=== PATIENT | female | born 1975 | race Caucasian/White ===

== ENCOUNTER 2019-11-04 09:23 | Outpatient (CLI) | payer OTHER, SELFPAY ==
--- NOTE | ~2019-11-04 | MM_ITS ---
EXAMINATION: MM screening [facility] BI w eric HISTORY: Screening mammogram TECHNIQUE: Craniocaudal and mediolateral oblique 3-D tomosynthesis images were obtained and synthetic 2-D images were generated. CAD analysis was submitted and interpreted. COMPARISON: Comparison to multiple prior studies sequentially, with oldest reviewed study dated 07/11. BREAST PARENCHYMAL COMPOSITION: The breasts are heterogeneously dense, which may obscure small masses . FINDINGS: There is no evidence of suspicious mass, calcification, or architectural distortion to sugg est malignancy in either breast. There has been no suspicious interval change. IMPRESSION: 1. No mammographic evidence of malignancy. 2. Recommend routine screening mammography in one year. BI-RADS Category 1: Negative Reviewed, dictated and finalized at location A.
== END 2019-11-04 09:24 | disposition home or self-care (01) ==
LOC: ANHIMG 09:26
PROVIDERS: PCP Internal Medicine; Visit Provider Nurse Practitioner Obstetrics & Gynecology
DX: Z12.31 Encounter for screening mammogram for malignant neoplasm of breast (principal)
CPT/HCPCS: 77063; 77067

== ENCOUNTER 2020-11-23 17:20 | Outpatient (CLI) | payer BC, SELFPAY ==
--- NOTE | ~2020-11-23 | MM_ITS ---
EXAMINATION: MM screening [facility] w eric HISTORY: Screening mammogram TECHNIQUE: Craniocaudal and mediolateral oblique 3-D tomosynthesis images were obtained and synthetic 2-D images were generated. CAD analysis was submitted and interpreted. COMPARISON: 11/04/2019, 10/17/2018, 10/16/2017 bilateral digital screening mammogram examinations BREAST PARENCHYMAL COMPOSITION: The breasts are heterogeneously dense, which may obscure small masses . FINDINGS: There is no evidence of suspicious mass, calcification, or architectural distortion to sugg est malignancy in either breast. There has been no suspicious interval change. IMPRESSION: 1. No mammographic evidence of malignancy. 2. Recommend routine screening mammography in one year. BI-RADS Category 1: Negative Reviewed, dictated and finalized at location A.
== END 2020-11-23 17:21 | disposition home or self-care (01) ==
PROVIDERS: PCP Internal Medicine; Visit Provider Advanced Practice Midwife
DX: Z12.31 Encounter for screening mammogram for malignant neoplasm of breast (principal)
CPT/HCPCS: 77063; 77067

== ENCOUNTER 2022-01-10 08:01 | Outpatient (CLI) | payer BC, SELFPAY ==
--- NOTE | ~2022-01-10 | MM_ITS ---
EXAMINATION: MM screening [facility] BI w eric HISTORY: Screening mammogram TECHNIQUE: Craniocaudal and mediolateral oblique 3-D tomosynthesis images were obtained and synthetic 2-D images were generated. CAD analysis was submitted and interpreted. COMPARISON: 11/23/2020, 11/04/2019, 10/21/2018 BREAST PARENCHYMAL COMPOSITION: The breasts are heterogeneously dense, which may obscure small masses . FINDINGS: There is no suspicious mass, calcification, or architectural distortion to suggest malignan cy in either breast. There has been no suspicious interval change. IMPRESSION: 1. No mammographic evidence of malignancy. 2. Recommend routine screening mammography in one year. BI-RADS Category 1: Negative Reviewed, dictated and finalized at location A.
== END 2022-01-10 08:02 | disposition home or self-care (01) ==
PROVIDERS: PCP Internal Medicine; Visit Provider Advanced Practice Midwife
DX: Z12.31 Encounter for screening mammogram for malignant neoplasm of breast (principal)
CPT/HCPCS: 77063; 77067

== ENCOUNTER → 2022-05-27 08:01 | Outpatient (CLI) | payer BC, SELFPAY ==
--- NOTE | ~2022-05-27 | US_ITS ---
EXAMINATION: US thyroid DATE: 05/27/2022 08:28 INDICATION: Hypothyroidism. TECHNIQUE: Multiple ultrasound images of the thyroid were obtained. COMPARISON: None. FINDINGS: The right thyroid lobe measures 4.3 x 1.2 x 1.3 cm. The left thyroid lobe measures 4.2 x 1.1 x 1.2 c m. There is heterogeneous echotexture and echogenicity throughout the thyroid gland. No discrete nod ules identified. Normal vascular flow is present. IMPRESSION: Heterogeneous thyroid gland as can be seen with Cheri thyroiditis and Graves' disease. Reviewed, dictated and finalized at location K. [employer] IMPRESSION: Heterogeneous thyroid gland as can be seen with Cheri thyroiditis and Grave s' disease.
== END ==
PROVIDERS: PCP Internal Medicine; Visit Provider Clinical Nurse Specialist
DX: E03.9 Hypothyroidism, unspecified (principal)
CPT/HCPCS: 76536

== ENCOUNTER 2023-02-17 00:43 | Day surgery (SDC) | payer BC, SELFPAY ==
[2023-01-29 14:23] VITALS: BMI 21.9
--- NOTE | 2023-02-16 18:23 | PM.HPGS ---
History of Present Illness History of Present Illness Consent: Risks, benefits, and alternatives have been discussed and questions answered. Patient agrees to proceed with procedure. Chief complaint: neoplasm screening Narrative: Mavis Dudley is a 47 year old female who is referred for colon cancer screening. Review of Systems Review of Systems: All systems reviewed & are unremarkable except as noted in HPI and below PMFSH Past Medical History Medical History Depression Hyperlipidemia Hypertension Hypothyroidism Insomnia Family History Family History Father Hyperlipidemia Diabetes mellitus Acute myocardial infarction FHx: cancer of prostate Mother Brain aneurysm Hypothyroidism Gastric artery aneurysm Social History Social History Smoking status: Never smoker Alcohol intake: current Alcohol use details: occasional Substance use type: does not use Lack of Transportation: No Lack of Food: Never True Current Housing: I Have Housing Concerned About Future Housing: No Difficulty Paying Gas/Electric Bills: No Difficulty Paying for Meds: No Currently Unemployed: No Education: Bachelor's Degree Difficulty w/ Childcare or Family Care: No Living arrangements: with family Spiritual care concerns: No Meds Home Medications and Allergies Home Medications Medication Instructions Recorded Confirmed Type levonorgestrel 21 mcg/24 hours (8 1 device intrauterine ONCE 02/16/20 02/17/23 History yrs) 52 mg intrauterine device (Mirena) lurasidone 20 mg tablet (Latuda) 20 mg PO DAILY 02/16/20 02/17/23 History cetirizine 10 mg capsule (Zyrtec) 10 mg PO DAILY PRN allergy symptoms 02/18/22 02/17/23 History ferrous sulfate 325 mg (65 mg 325 mg PO .MWF 02/18/22 02/17/23 History iron) tablet,delayed release levothyroxine 25 mcg tablet 25 mcg PO DAILY #90 tabs 07/26/22 02/17/23 Rx hydrocortisone 2.5 % topical cream 1 applic RECTAL Q12H PRN pain #30 01/28/23 02/17/23 Rx with perineal applicator grams (Proctozone-HC) Allergies Allergy/AdvReac Type Severity Reaction Status Date / Time No Known Allergies Allergy Unknown Verified 08/21/23 07:16 Exam Resp: Auscultation: clear to auscultation bilaterally Cardio: Rate: regular rate Rhythm: regular rhythm GI: GI Palp: Yes Soft to palpation and No Tenderness to palpation present (GI) Assessment and Plan Assessment and plan (1) Screening for colon cancer: Code(s): Z12.11 - Encounter for screening for malignant neoplasm of colon Status: Acute Assessment and Plan: Colonoscopy with possible biopsy or polypectomy or cautery or injection of substances.
[2023-02-17 07:17] VITALS: BP 152/101; PULSE 69; RESP 16; TEMP 36.4; O2SAT 100; BMI 21.8
[2023-02-17] MEDS: LACTATED RINGERS 1,000 ML 150 ML IV CONT (07:30)
--- NOTE | 2023-02-17 07:47 | WPDANESEPPF ---
Anes - Initial Pre Proc Eval Procedure: Operation Date: 02/17/23 08:30 Proposed Procedures p Screening Colonoscopy - Clinton Santoro MD Date/Time: 02/17/23 07:47 Surgeon: Clinton Santoro MD Pre Op Diagnosis: neoplasm screening Patient Data Age: 47 Gender: F Height: 1.63 m Weight: 57.6 kg Last Vital Signs Temp 36.4 C 02/17/23 07:17 Pulse 69 02/17/23 07:17 Resp 16 02/17/23 07:17 BP 152/101 H 02/17/23 07:17 Pulse Ox 100 02/17/23 07:17 O2 Del Method Room Air 02/17/23 07:17 Allergies Allergy/AdvReac Type Severity Reaction Status Date / Time No Known Allergies Allergy Unknown Verified 02/17/23 07:16 Home Medications Medication Instructions Recorded Confirmed Type levonorgestrel 21 mcg/24 hours (8 1 device intrauterine ONCE 02/16/20 02/17/23 History yrs) 52 mg intrauterine device (Mirena) lurasidone 20 mg tablet (Latuda) 20 mg PO DAILY 02/16/20 02/17/23 History cetirizine 10 mg capsule (Zyrtec) 10 mg PO DAILY PRN allergy symptoms 02/18/22 02/17/23 History ferrous sulfate 325 mg (65 mg 325 mg PO .MWF 02/18/22 02/17/23 History iron) tablet,delayed release levothyroxine 25 mcg tablet 25 mcg PO DAILY #90 tabs 07/26/22 02/17/23 Rx hydrocortisone 2.5 % topical cream 1 applic RECTAL Q12H PRN pain #30 01/28/23 02/17/23 Rx with perineal applicator grams (Proctozone-HC) Patient hx anesthesia problems: none Family hx anesthesia problems: none Results Review: All pre-operative results and documents have been reviewed as part of the pre-operative evaluation. [facility] Past Medical History Medical History Depression Hyperlipidemia Hypertension Hypothyroidism Insomnia Family History Family History Father Hyperlipidemia Diabetes mellitus Acute myocardial infarction FHx: cancer of prostate Mother Brain aneurysm Hypothyroidism Gastric artery aneurysm Social History Social History Smoking status: Never smoker Alcohol intake: current Alcohol use details: occasional Substance use type: does not use Lack of Transportation: No Lack of Food: Never True Current Housing: I Have Housing Concerned About Future Housing: No Difficulty Paying Gas/Electric Bills: No Difficulty Paying for Meds: No Currently Unemployed: No Education: Bachelor's Degree Difficulty w/ Childcare or Family Care: No Living arrangements: with family Spiritual care concerns: No Anes - Eval Final PreProcedure Day of Procedure 02/17/23 07:47 Patient weight: normal Heart: regular rate and rhythm Lungs: clear to auscultation Airway: Mallampati scale class II Neurological: alert and oriented Last oral intake: >/= 8 hours ASA classification: III Emergent: no Anesthetic plan: proceed Anesthesia type and monitoring: general GIVS and standard monitoring Results Review: All pre-operative results and documents have been reviewed as part of the pre-operative evaluation. Informed Consent: The patient's anesthetic plan and its attendant risks and benefits were discussed with the patient/family/POA. Questions were solicited and answers provided to the satisfaction of the patient/family/POA.
[2023-02-17 08:51] VITALS: BP 107/63; PULSE 70; RESP 19; O2SAT 100
[2023-02-17 09:01] VITALS: BP 128/83; PULSE 67; RESP 19; O2SAT 100
[2023-02-17 09:11] VITALS: BP 123/84; PULSE 67; RESP 19; O2SAT 100
== END 2023-02-17 09:23 | disposition home or self-care (01) ==
PROVIDERS: PCP Internal Medicine; Visit Provider Internal Medicine Gastroenterology
PROC: 0DJD8ZZ Inspection of Lower Intestinal Tract, Via Natural or Artificial Opening Endoscopic (ICD-10-PCS; CPT 45378; principal; 2023-02-17 08:30)
DX: Z12.11 Encounter for screening for malignant neoplasm of colon (principal); K57.30 Diverticulosis of large intestine without perforation or abscess without bleeding; I10 Essential (primary) hypertension; E78.5 Hyperlipidemia, unspecified; E03.9 Hypothyroidism, unspecified; F32.A Depression, unspecified
CPT/HCPCS: 45378; J2704; J7120

== ENCOUNTER 2023-03-31 15:41 | Outpatient (CLI) | payer BC, SELFPAY ==
--- NOTE | ~2023-03-31 | MM_ITS ---
EXAMINATION: MM screening [facility] BI w eric HISTORY: Screening mammogram TECHNIQUE: Craniocaudal and mediolateral oblique 3-D tomosynthesis images were obtained and synthetic 2-D images were generated. CAD analysis was submitted and interpreted. COMPARISON: 01/10/2022, 11/23/2020, 11/04/2019 BREAST PARENCHYMAL COMPOSITION: The breasts are heterogeneously dense, which may obscure small masses . FINDINGS: No suspicious mass, calcification, or architectural distortion are identified in either erasmo ast to suggest malignancy. There has been no suspicious interval change. IMPRESSION: 1. No mammographic evidence of malignancy. 2. Recommend routine screening mammography in one year. BI-RADS Category 1: Negative Reviewed, dictated and finalized at location A.
== END 2023-03-31 15:42 | disposition home or self-care (01) ==
LOC: ANHIMG 15:44
PROVIDERS: PCP Internal Medicine; Visit Provider Advanced Practice Midwife
DX: Z12.31 Encounter for screening mammogram for malignant neoplasm of breast (principal)
CPT/HCPCS: 77063; 77067

== ENCOUNTER 2023-12-02 11:15 | Outpatient (CLI) | payer BC, SELFPAY ==
--- NOTE | ~2023-12-02 | US_ITS ---
EXAMINATION: US pelvic complete w TV DATE: 12/02/2023 11:54 INDICATION: R10.2 - Pelvic and perineal pain TECHNIQUE: Multiple transabdominal and endovaginal sonographic images of the pelvis were obtained. COMPARISON: None. FINDINGS: Uterus: 8.1 x 3.2 x 3.9 cm. Anteverted. 1.6 cm round hypoechogenic lesion in the fundal uterine paren chyma, likely intramural fibroid. Endometrial complex measures 5 mm. Right Ovary: 3.1 x 1.5 x 1.5 cm. Vascular flow is present. Left Ovary: 2.5 x 1.8 x 2.7 cm. Vascular flow is present. Somewhat triangular shaped hypoechoic 1.5 cm right ovarian lesion with nonvascular internal debris. There is no free fluid in the pelvis. IMPRESSION: 1.6 cm fundal intramural fibroid. 1.5 cm right ovarian lesion, likely resolving hemorrhagic cyst, recommend follow-up in 8-12 weeks to demonstrate resolution. Reviewed, dictated and finalized at location K. IMPRESSION: 1.6 cm fundal intramural fibroid. 1.5 cm right ovarian lesion, likely resolving hemorrhagic cyst, recommend follo w-up in 8-12 weeks to demonstrate resolution.
== END 2023-12-02 11:16 ==
LOC: MICIMG 11:16
PROVIDERS: PCP Advanced Practice Midwife; Visit Provider Clinical Nurse Specialist
DX: D25.1 Intramural leiomyoma of uterus (principal); N83.201 Unspecified ovarian cyst, right side
CPT/HCPCS: 76830; 76856

== ENCOUNTER 2024-02-17 08:08 | Outpatient (CLI) | payer BC, SELFPAY ==
--- NOTE | ~2024-02-17 | US_ITS ---
EXAMINATION: US pelvic complete w TV INDICATION: Ovarian cysts Comparison:Ultrasound dated 12/02/2023 TECHNIQUE: Multiple transabdominal and endovaginal sonographic images of the pelvis performed. FINDINGS: The uterus measures 8 x 3.4 x 4.4 cm. There are multiple uterine fibroids measuring up to 2 .1 cm at the fundus, 1.8 cm on the right of the uterus and 9 mm posteriorly in the uterus. There is a n IUD present in the endometrium. There is a right ovarian cyst measuring 2.8 cm.. The endometrial co mplex measures 5. The right ovary measures 3.4 x 3 x 2.1 cm and the left ovary measures 2.6 x 1.9 x 1.4 cm. There are small follicles in each ovary. Normal dop pler signal in both ovaries. There is no free fluid in the pelvis. There are no abnormal masses seen on either side. IMPRESSION: 1. Multiple uterine fibroids, largest at the fundus measuring 2.1 cm. 2: IUD present within the endometrium. 3: Simple right ovarian cyst measuring 2.8 cm. Reviewed, dictated and finalized at location B.
== END 2024-02-17 08:09 ==
PROVIDERS: PCP Clinical Nurse Specialist; Visit Provider Advanced Practice Midwife
DX: N83.201 Unspecified ovarian cyst, right side (principal); D25.9 Leiomyoma of uterus, unspecified; Z97.5 Presence of (intrauterine) contraceptive device
CPT/HCPCS: 76830; 76856

== ENCOUNTER 2024-04-02 07:07 | Outpatient (CLI) | payer BC, SELFPAY ==
--- NOTE | ~2024-04-02 | MM_ITS ---
EXAMINATION: MM screening [facility] BI w eric HISTORY: Screening mammogram TECHNIQUE: Craniocaudal and mediolateral oblique 3-D tomosynthesis images were obtained and synthetic 2-D images were generated. CAD analysis was submitted and interpreted. COMPARISON: 03/31/2023, 01/10/2022, 11/23/2020, 11/04/2019 BREAST PARENCHYMAL COMPOSITION:Dense: The breasts are heterogeneously dense, which may obscure small masses. FINDINGS: No suspicious mass, calcification, or architectural distortion are identified in either erasmo ast to suggest malignancy. There has been no suspicious interval change. IMPRESSION: No mammographic evidence of malignancy. Recommend routine screening mammography in one year. BI-RADS Category 1: Negative Reviewed, dictated and finalized at location .
== END 2024-04-02 07:08 | disposition home or self-care (01) ==
LOC: ANHIMG 07:11
PROVIDERS: PCP Clinical Nurse Specialist; Visit Provider Advanced Practice Midwife
DX: Z12.31 Encounter for screening mammogram for malignant neoplasm of breast (principal)
CPT/HCPCS: 77063; 77067

== ENCOUNTER 2024-04-06 08:07 | Outpatient (CLI) | payer BC, SELFPAY ==
--- NOTE | ~2024-04-06 | CT_ITS ---
CT of the Abdomen and Pelvis: Indication: Abdominal pain Technique: 2.5 mm axial scans were obtained through the abdomen and pelvis following intravenous adm inistration of 100 cc of Omnipaque 350. Dose reduction technique was used on this scan by utilizing a utomated exposure control and iterative reconstruction technique. The dose-length product (DLP) was 4 46.94 mGy-cm. Findings: Scans through the lung bases are unremarkable. The liver, spleen, pancreas, gallbladder, adrenals and kidneys are within normal limits. There are mi ld atherosclerotic calcifications of the aorta. . No lymphadenopathy. No bowel obstruction or bowel wall thickening. There is no evidence to suggest acute appendicitis. Images through the pelvis were performed. Urinary bladder unremarkable. 2.4 cm left ovarian cyst pres ent. IUD in place. Impression: No acute abnormality. 2.4 cm left ovarian cyst. IUD in place. Reviewed, dictated and finalized at [facility]. Impression: No acute abnormality. 2.4 cm left ovarian cyst. IUD in place.
[2024-04-06 09:00] LABS: Estimated Glomerular Filt Rate 59
== END 2024-04-06 08:08 | disposition home or self-care (01) ==
LOC: MICIMG 08:08
PROVIDERS: PCP Internal Medicine Gastroenterology; Visit Provider Clinical Nurse Specialist
DX: N83.202 Unspecified ovarian cyst, left side (principal); Z97.5 Presence of (intrauterine) contraceptive device; R10.9 Unspecified abdominal pain
CPT/HCPCS: 74177; Q9967

== ENCOUNTER 2024-05-03 00:35 | Day surgery (SDC) | payer BC, SELFPAY ==
[2024-04-27 13:33] VITALS: BMI 22.8
[2024-05-03 06:24] VITALS: BP 130/94; PULSE 72; RESP 18; TEMP 36.2; O2SAT 100; BMI 23.4
[2024-05-03] MEDS: LACTATED RINGERS 1,000 ML 150 ML IV CONT (06:30)
--- NOTE | 2024-05-03 06:57 | P.PNAN_ITS ---
Anes - Initial Pre Proc Eval Procedure: Operation Date: 05/03/24 07:30 Proposed Procedures p Esophagogastroduodenoscopy - Rosendo Benjamin MD Date/Time: 05/03/24 06:57 Surgeon: Rosendo Benjamin MD Pre Op Diagnosis: Dysphagia Patient Data Age: 49 Gender: F Height: 1.63 m Weight: 62 kg Last Vital Signs Temp 36.2 C L 05/03/24 06:24 Pulse 72 05/03/24 06:24 Resp 18 05/03/24 06:24 BP 130/94 H 05/03/24 06:24 Pulse Ox 100 05/03/24 06:24 O2 Del Method Room Air 05/03/24 06:24 Allergies Allergy/AdvReac Type Severity Reaction Status Date / Time No Known Allergies Allergy Unknown Verified 05/03/24 06:23 Home Medications Medication Instructions Recorded Confirmed Type levonorgestrel 21 mcg/24 hr (up to 1 device intrauterine ONCE 02/16/20 05/03/24 History 8 years) 52 mg intrauterine device (Mirena) lurasidone 20 mg tablet (Latuda) 20 mg PO DAILY 02/16/20 05/03/24 History cetirizine 10 mg capsule (Zyrtec) 10 mg PO DAILY PRN allergy symptoms 02/18/22 05/03/24 History ferrous sulfate 325 mg (65 mg 325 mg PO .MWF 02/18/22 05/03/24 History iron) tablet,delayed release levothyroxine 50 mcg tablet 50 mcg PO DAILY #102 tabs 02/03/24 05/03/24 Rx terbinafine HCl 250 mg tablet 250 mg PO DAILY 03/25/24 05/03/24 History Patient hx anesthesia problems: none Family hx anesthesia problems: none Results Review: All pre-operative results and documents have been reviewed as part of the pre- operative evaluation. [facility] Past Medical History Medical History Close exposure to COVID-19 virus Depression Dyspepsia Hematuria Hordeolum Hyperlipidemia Hypertension Hypothyroidism Insomnia Iron deficiency anemia Pain in female pelvis Plantar wart of right foot Surgical History Surgical History (Updated 05/03/24 @ 06:58 by Jesús Paula MD) H/O colonoscopy Family History Family History Father Hyperlipidemia Diabetes mellitus Acute myocardial infarction FHx: cancer of prostate Mother Brain aneurysm Hypothyroidism Gastric artery aneurysm Sibling Stomach disorder abscess Social History Social History Smoking status: Never smoker Alcohol intake: current Drinks per week: 2 Alcohol use details: occasionally on weekends Substance use: never Substance use type: does not use Do You Feel Safe in your Home?: Yes Lack of Transportation: No Lack of Food: Never True Current Housing: I Have Housing Concerned About Future Housing: No Difficulty Paying Gas/Electric Bills: No Difficulty Paying for Meds: No Currently Unemployed: No Education: Bachelor's Degree Difficulty w/ Childcare or Family Care: No Living arrangements: with family Spiritual care concerns: No Anes - Eval Final PreProcedure Day of Procedure 05/03/24 06:57 Patient weight: normal Heart: regular rate and rhythm Lungs: clear to auscultation Airway: Mallampati scale class II Neurological: alert and oriented Last oral intake: >/= 8 hours ASA classification: III Emergent: no Anesthetic plan: proceed Anesthesia type and monitoring: general GIVS and standard monitoring Results Review: All pre-operative results and documents have been reviewed as part of the pre- operative evaluation. Informed Consent: The patient's anesthetic plan and its attendant risks and benefits were discussed with the patient/family/POA. Questions were solicited and answers provided to the satisfaction of the patient/family/POA.
--- NOTE | 2024-05-03 07:27 | WPDHPUPDATE1 ---
History and Physical Update Update Date/Time: 05/03/24 07:27 History and Physical has been reviewed, including an updated exam of the patient. There are NO changes in the patient's condition. Risks, benefits, and alternatives have been discussed and questions answered. Patient agrees to proceed with procedure.
[2024-05-03 07:42] VITALS: BP 102/66; PULSE 80; RESP 20; O2SAT 100
[2024-05-03 07:44] LABS: BEDSIDEPREGUCG Negative (Negative)
[2024-05-03 07:52] VITALS: BP 109/81; PULSE 71; RESP 24; O2SAT 100
[2024-05-03 08:02] VITALS: BP 129/94; PULSE 71; RESP 23; O2SAT 100
== END 2024-05-03 08:10 | disposition home or self-care (01) ==
PROVIDERS: PCP Internal Medicine; Referring Provider Nurse Practitioner Family; Visit Provider Internal Medicine Gastroenterology
PROC: 0DJ08ZZ Inspection of Upper Intestinal Tract, Via Natural or Artificial Opening Endoscopic (ICD-10-PCS; CPT 43235; principal; 2024-05-03 07:30)
DX: R10.13 Epigastric pain (principal); R13.10 Dysphagia, unspecified; E78.5 Hyperlipidemia, unspecified; I10 Essential (primary) hypertension; E03.9 Hypothyroidism, unspecified; G47.00 Insomnia, unspecified; D50.9 Iron deficiency anemia, unspecified; F32.A Depression, unspecified; Z80.42 Family history of malignant neoplasm of prostate; Z82.49 Family history of ischemic heart disease and other diseases of the circulatory system
CPT/HCPCS: 43239; 88305; J2003; J2704; J7120

== ENCOUNTER 2025-04-21 15:21 | Outpatient (CLI) | payer BC, SELFPAY ==
--- NOTE | ~2025-04-21 | MM_ITS ---
EXAMINATION: MM screening [facility] BI w eric HISTORY: Screening TECHNIQUE: Craniocaudal and mediolateral oblique 3-D tomosynthesis images were obtained and synthetic 2-D images were generated. CAD analysis was submitted and interpreted. COMPARISON: Comparison to multiple prior studies sequentially, with oldest reviewed study dated , 11/04/2019 BREAST PARENCHYMAL COMPOSITION: The breasts are heterogeneously dense, which may obscure small masses. FINDINGS: There is no evidence of suspicious mass, calcification, or architectural distortion to suggest malignancy in either breast. IMPRESSION: 1. No mammographic evidence of malignancy. 2. Recommend routine screening mammography in one year. BI-RADS Category 1: Negative Reviewed, dictated and finalized at location B.
== END 2025-04-21 15:22 | disposition home or self-care (01) ==
LOC: ANHFOHIMG 15:23
PROVIDERS: PCP Internal Medicine; Visit Provider Student in an Organized Health Care Education/Training Program
DX: Z12.31 Encounter for screening mammogram for malignant neoplasm of breast (principal)
CPT/HCPCS: 77063; 77067